=== PATIENT | male | born 1970 | race Caucasian/White ===

== ENCOUNTER → 2017-03-21 | Outpatient (CLI) | payer SELFPAY | END | disposition home or self-care (01) | LOC: CDC 14:58 | DX: I45.4 Nonspecific intraventricular block (principal); A44.9 Bartonellosis, unspecified; R53.83 Other fatigue; M25.50 Pain in unspecified joint; A69.20 Lyme disease, unspecified; F80.89 Other developmental disorders of speech and language | CPT/HCPCS: 93000 ==